=== PATIENT | male | born 1945 | race American Indian/Alaskan Native ===

== ENCOUNTER 2019-10-26 05:59 | Observation (INO) | payer OTHER ==
--- NOTE | 2019-10-22 09:51 | Anesthesia Consultation ---
Anesthesia Consult and Med Hx Date of service: 10/26/19 - Airway Anesthetic Teeth Evaluation: Good, Bridges ROM Head & Neck: Adequate Mental/Hyoid Distance: Adequate Mallampati Class: Class I Intubation Access Assessment: Good - Pulmonary Exam CTA: Yes - Cardiac Exam Cardiac Exam: RRR - Pre-Operative Health Status ASA Pre-Surgery Classification: ASA2 Proposed Anesthetic Plan: General - Pulmonary Hx Smoking: No Hx Respiratory Symptoms: No Hx Sleep Apnea: No (CHITO PRE SCREEN LOW RISK) - Cardiovascular System Hx Hypertension: No Hx Heart Attack/AMI: No Hx Percutaneous Transluminal Coronary Angioplasty (PTCA): No - Central Nervous System CVA: No - Gastrointestinal Hx Gastroesophageal Reflux Disease: No - Endocrine Hx Renal Disease: No Hx Liver Disease: No Hx Insulin Dependent Diabetes: No Hx Non-Insulin Dependent Diabetes: No Hx Thyroid Disease: No - Other Systems Hx Cancer: Yes (prostate ca currently and hx lymphoma 1986) Hx Obesity: No - Additional Comments Anesthesia Medical History Comments: No hx anesthetic complications.
[2019-10-22 09:53] LABS: Hematocrit 43.7 % (35.5-45.6); Hemoglobin 14.2 gm/dl (11.8-15.2); Mean Corpuscular HGB Conc 33 % (32-34); Mean Corpuscular Volume 92 fl (84-94); Platelet Count 187 K/mm3 (140-440); Red Blood Count 4.73 M/mm3 (3.65-5.03); Red Cell Distribution Width 14.2 % (13.2-15.2)
[2019-10-22 10:16] LABS: Alanine Aminotransferase 20 units/L (7-56); Albumin 4.3 g/dL (3.9-5); BUN/Creatinine Ratio 18; Blood Urea Nitrogen 14 mg/dL (9-20); Calcium 9.1 mg/dL (8.4-10.2); Hemolysis Index 12
[~2019-10-26 05:59] MED LIST: ceFAZolin/STERILE WATER 2 GM/20 ML SYRINGE IV NR
[2019-10-26] MEDS ORDERED: CELECOXIB 200 MG CAP PO NR (06:00)
[2019-10-26] MEDS ORDERED: ACETAMINOPHEN 500 MG TAB PO ONE (06:00)
[2019-10-26] MEDS ORDERED: MAGNESIUM OXIDE 400 MG TAB PO SCH (06:00)
[2019-10-26] MEDS ORDERED: GABAPENTIN 300 MG CAP PO NR (06:00)
[2019-10-26] MEDS ORDERED: LACTATED RINGERS 1,000 ML IV SCH (06:00)
[2019-10-26] MEDS ORDERED: LIDOCAINE PF 100 MG/5 ML (CARDIAC SYRINGE) IV ONE (07:14)
[2019-10-26] MEDS ORDERED: ROCURONIUM 50 MG/5 ML INJ IV ONE (07:14)
[2019-10-26] MEDS ORDERED: fentaNYL 100 MCG/2 ML INJ ONE ×2 (07:15→09:18)
[2019-10-26] MEDS ORDERED: propofoL 200 MG/20 ML VIAL IV ONE (07:15)
[2019-10-26] MEDS ORDERED: HYDROmorphone 1 MG/1 ML INJ IV PRN (07:19)
--- NOTE | 2019-10-26 07:20 | Anesthesia Day of Surgery ---
Anesthesia Day of Surgery - Day of Surgery Patient Examined: Yes Patient H&P Reviewed: Yes Patient is NPO: Yes
[2019-10-26] MEDS ORDERED: ePHEDrine SULFATE 50 MG/1 ML INJ ONE (07:26)
[2019-10-26] MEDS ORDERED: METHYLENE BLUE 50 MG/10 ML AMP ONE (07:47)
[2019-10-26] MEDS ORDERED: CITRIC ACID-SOD CITRATE 500 ML IV ONE (07:47)
[2019-10-26] MEDS ORDERED: BUPIVACAINE-EPINEPHRINE/PF 0.5%-1:200,000 (30 ML) VIAL INFILTRATI ONE ×2 (07:47→09:17)
[2019-10-26] MEDS ORDERED: CALCIUM CHLORIDE 1,000 MG/10 ML SYRINGE IV ONE ×2 (08:14→09:18)
[2019-10-26] MEDS ORDERED: THROMBIN (RECOMBINANT) 5,000 UNIT VIAL TP ONE ×2 (08:14→09:19)
[2019-10-26] MEDS ORDERED: CITRIC ACID-SOD CITRATE SOLN 500 ML IV SOLN IV ONE (09:18)
[2019-10-26] MEDS ORDERED: WATER FOR IRRIG STERILE 1,500 ML BOTTLE IR ONE (09:20)
[2019-10-26] MEDS ORDERED: SODIUM CHLORIDE 0.9% IRRIG SOLN 2000 ML IR ONE (09:21)
[2019-10-26] MEDS ORDERED: ONDANSETRON 4 MG/2 ML INJ ONE (10:30)
[2019-10-26] MEDS ORDERED: NEOSTIGMINE 10MG/10 ML INJ MDV ONE (10:39)
[2019-10-26] MEDS ORDERED: GLYCOPYRROLATE 0.4 MG/2 ML INJ ONE (10:39)
[2019-10-26] MEDS ORDERED: MORPHINE 2 MG/1 ML INJ IV PRN (11:06)
[2019-10-26] MEDS ORDERED: NALOXONE 0.4 MG/1 ML INJ IV PRN (11:06)
[2019-10-26] MEDS ORDERED: ONDANSETRON 4 MG/2 ML INJ IV PRN (11:06)
--- NOTE | 2019-10-26 11:06 | Short Stay Summary ---
Short Stay Documentation Date of service: 10/26/19 - History H&P: obtained from office - Allergies and Medications Current Medications: Allergies No Known Allergies Allergy (Verified 10/14/19 15:03) Home Medications Medication Instructions Recorded Confirmed Last Taken Type Docosahexanoic Acid [Algal Laurens-3 200 mg PO DAILY 10/14/19 10/26/19 10/12/19 09:00 History Dha] Laurens-3 Fatty Acids/Fish Oil [Fish 1,000 mg PO DAILY 10/14/19 10/26/19 10/12/19 09:00 History Oil] Active Medications Cefazolin Sodium (Ancef/Sterile Water 2 Gm/20 Ml) 2 gm IV PREOP NR Stop: 10/26/19 23:59 Celecoxib (Celebrex) 200 mg PO PREOP NR Stop: 10/26/19 23:59 Last Admin: 10/26/19 06:48 Dose: 200 mg Documented by: Gabapentin (Gabapentin) 300 mg PO PREOP NR Stop: 10/26/19 23:59 Last Admin: 10/26/19 06:49 Dose: 300 mg Documented by: Hydromorphone HCl (Dilaudid) 0.5 mg IV Q10MIN PRN PRN Reason: Pain , Severe (7-10) Stop: 10/26/19 23:00 Lactated Ringer's (Lactated Ringers) 1,000 mls @ 100 mls/hr IV DIRECT KATY Stop: 10/26/19 23:59 Last Admin: 10/26/19 06:45 Dose: 100 mls/hr Documented by: Magnesium Oxide (Mag-Ox) 400 mg PO PREOP KATY Stop: 10/26/19 23:59 Last Admin: 10/26/19 06:49 Dose: 400 mg Documented by: - Brief post op/procedure progress note Date of procedure: 10/26/19 Pre-op diagnosis: prostate cancer Post-op diagnosis: same Procedure: robotic prostatectomy Anesthesia: GETA Surgeon: LAYO MCKEON Estimated blood loss: other (250) Pathology: list (prostate, (pt s/p chemo for lymphoma in past)) Specimen disposition: to lab Condition: stable - Hospital course Hospital course: pt has bactrim & norco, info on chart dory removed --- home with garcia - Disposition Condition at discharge: Stable Short Stay Discharge Plan Follow up with: [facility] [Primary Care Provider] - 7 Days
--- NOTE | 2019-10-26 13:15 | Post Anesthesia Evaluation ---
- Post Anesthesia Evaluation Patient Participated: Yes Airway Patent: Yes Stable Respiratory Function: Yes Nausea/Vomiting: No Temp > 96.8F: Yes Pain Manageable: Yes Adequeate Hydration: Yes Anesthesia Complications: No
--- NOTE | 2019-10-26 14:16 | Operative Report ---
PREOPERATIVE DIAGNOSIS: Prostate cancer, [place] 4+3. POSTOPERATIVE DIAGNOSIS: Prostate cancer, [place] 4+3. PROCEDURE: Robotic retropubic prostatectomy with bladder neck suspension. SURGEON: Quinn Morales MD VALVE STEAMER: Anette Anne. ANESTHESIA: General. ESTIMATED BLOOD LOSS: Minimal. FLUIDS: Crystalloid. COMPLICATIONS: No complications. DRAINS: Khai-Andersen drain x 1. INDICATIONS: This is a 73-year-old seen in the office with an elevated PSA of 6. He underwent transrectal ultrasound and biopsy of his prostate in July and was found to have [place] 4+3 adenocarcinoma of the prostate. CT bone scan negative except for some mild scarring in the lungs. Also, of note, he has a history of lymphoma, status post chemo and radiation. Discussed options. The patient agreed to proceed with surgical intervention. DESCRIPTION OF PROCEDURE: The patient was taken to the operative suite, placed in a supine position. After adequate general anesthesia, a Peterson catheter was placed on the operative field. A 1-cm supraumbilical midline incision was made with the Bovie. Towel clips were placed. Veress needle was negative for drop test. Opening pressure was 1 cm of water. Insufflation of the abdomen with a pressure of 15 cm of water was performed. 0-degree lens was then placed in the supraumbilical incision without any difficulty. No signs of injury or metastatic disease were noted. A 15-mm cephalad ____ pubic rami was marked in the midline and then another 8 cm and an additional 8 cm lateral to allow placement of the 8-mm ports. The patient has a narrow pelvis and we did not attempt 10 cm distance between the ports, 8 mm ports were placed on the left side without difficulty under direct vision, one 8 mm port on the right side and additional 12 and 5 mm helper port on the right side. The patient was placed in exaggerated Trendelenburg position, had some adhesions of the ____ sigmoid colon that were taken down sharply without difficulty. Second arch was then identified. It was scored exposing the seminal vesicles and vas deferens. They were dissected free. Vas deferens was transected bilaterally. There was a small amount of tedious ooze on the right side and therefore, Natasha was placed posterior to the prostate. This may be due to his previous chemo and radiation. There is also noted to be some scarring between the dissection of the prostate and seminal vesicles. Attention was then taken anteriorly, lateral umbilical ligament was scored and then across the midline to create a bladder flap, dissection was taken down to the pubic rami bilaterally. The endopelvic fascia was exposed dissecting lateral to the prostate. Dissection to the apex of the prostate was performed and the dorsal vein complex was identified and controlled with a 60-mm vascular stapler. Manipulation of the Peterson allowed identification of the bladder neck, which was transected anteriorly. A 2-0 Vicryl helper stitch was placed into the 12 o'clock position into the bladder neck. Peterson catheter was deflated, pulled anteriorly, used as traction. Posterior bladder neck was transected and again significant inflammation could be appreciated, making it very difficult to dissect free the seminal vesicles and vas deferens. Lateral pedicles were then identified. A 60-mm vascular stapler was used to control the right side, the left side did not have much tissue and the stapler was not needed. Attention was then taken anterior to the prostate at the distal aspect. Urethra was transected exposing the Peterson. Prostate was dissected free posteriorly and placed in the EndoCatch bag. Adequate inspection of the rectum, no injury. Copious irrigation was performed. Adequate hemostasis was achieved. Bladder neck was then tapered down with 2-0 Vicryl in an interrupted fashion at the 5 o'clock and 7 o'clock positions. Double armed V-Loc was placed at the 6 o'clock position of the bladder neck and the corresponding aspect of the urethra and running stitch was performed bilaterally. A new 18-Urdu Peterson catheter was placed without difficulty ____ bladder neck stitch was cinched down. Bladder was irrigated with 60 mL of saline. No leak. Bladder neck suspension was also performed using the double armed V-Loc stitch placed in the pubic rami. Copious irrigation was performed. Adequate hemostasis was achieved. Platelet-rich plasma was injected around the urethra as well as platelet poor plasma. A 10-mm Khai-Andersen drain was inserted around the anastomosis and brought out on the left side via the #2 port. The robotic cart was undocked. The patient was placed in a supine position. The ports were removed. Supraumbilical incision was extended to allow removal of the prostate. Rectus fascia was closed with #1 Vicryl in a [id number] fashion. Khai-Andersen drain was secured with 2-0 silk in interrupted fashion. Peterson catheter sideport was folded over and secured with 0 silk in an interrupted fashion. The patient tolerated the procedure well. Anette Anne was the process assistant at the bedside throughout the procedure. JOB# [id number] C/NTS
[2019-10-26] MEDS ORDERED: SODIUM CHLORIDE 0.9% 1000 ML 1,000 ML ONE (14:31)
[2019-10-26] MEDS: SODIUM CHLORIDE 0.9% 1000 ML 1,000 ML IV SCH (15:00)
[2019-10-26] MEDS: ceFAZolin/NS 1 GM/50 ML 1 GM/50 ML BAG IV SCH (15:55)
[2019-10-26] MEDS ORDERED: ACETAMINOPHEN 325 MG TAB PO PRN (20:55)
[2019-10-26] MEDS ORDERED: ZOLPIDEM 5 MG TAB PO PRN (22:00)
[2019-10-26] MEDS: HYDROcodone/ACETAMINOPHEN 5-325 MG TAB PO PRN (22:36)
[2019-10-27] MEDS: ceFAZolin/NS 1 GM/50 ML 1 GM/50 ML BAG IV SCH (02:59)
[2019-10-27] MEDS: SODIUM CHLORIDE 0.9% 1000 ML 1,000 ML IV SCH (06:00)
[2019-10-27] MEDS: HYDROcodone/ACETAMINOPHEN 5-325 MG TAB PO PRN (06:13)
[2019-10-27 07:45] LABS: Basophils % (Auto) 0.1 % (0.0-1.8); Hematocrit 35.9 % (35.5-45.6); Lymphocytes # (Auto) 0.9 K/mm3 (1.2-5.4); Lymphocytes % (Auto) 8.6 % (13.4-35.0); Mean Corpuscular HGB Conc 33 % (32-34); Mean Corpuscular Volume 92 fl (84-94); Monocytes # (Auto) 0.8 K/mm3 (0.0-0.8); Monocytes % (Auto) 7.9 % (0.0-7.3); Platelet Count 158 K/mm3 (140-440); Red Blood Count 3.92 M/mm3 (3.65-5.03); Red Cell Distribution Width 13.8 % (13.2-15.2)
[2019-10-27 08:10] LABS: BUN/Creatinine Ratio 18; Blood Urea Nitrogen 14 mg/dL (9-20); Calcium 6.9 mg/dL (8.4-10.2); Hemolysis Index 6
[2019-10-27 11:43] VITALS: BP 154/78
== END 2019-10-27 14:50 | disposition home health service (06) ==
LOC: OR 05:59 → 3A 11:06 → 3B-SURG 19:18
PROVIDERS: ADMIT Urology; ATTEND Urology
DX: C61 Malignant neoplasm of prostate (principal); Z20.828 Contact with and (suspected) exposure to other viral communicable diseases; R97.20 Elevated prostate specific antigen [PSA]
CPT/HCPCS: 36415; 36430; 55866; 80048; 80053; 85025; 85027; 86850; 86900; 86901; 88309; 96361; 96365; 96366; 96375; A4217; G0378; J0690; J2001; J2405; J2704; J2710; J3010; J7030; J7120; P9016; S2900; U0003; 88341; 88342; Q9968